=== PATIENT | male | born 1965 | race Asian ===

== ENCOUNTER 2023-08-19 18:19 | Emergency (ER) | payer OTHER ==
[~2023-08-19] VITALS: Ht 172.7 cm; Wt 64.9 kg
[2023-08-19 18:27] VITALS: BP 132/78; TEMP 98
[2023-08-19] MEDS ORDERED: VALA100026 PO (18:51)
[2023-08-19] MEDS ORDERED: IBUP-1955 PO (18:51)
[2023-08-19] MEDS ORDERED: ACET-2605 PO (18:51)
[2023-08-19 18:55] VITALS: O2SAT 98
== END 2023-08-19 18:55 | disposition home or self-care (01) ==
LOC: ER 18:42
DX: B02.9 Zoster without complications (principal); I10 Essential (primary) hypertension; E11.9 Type 2 diabetes mellitus without complications; Z79.899 Other long term (current) drug therapy; Z79.1 Long term (current) use of non-steroidal anti-inflammatories (NSAID)